=== PATIENT | male | born 1975 | race Caucasian/White ===

== ENCOUNTER 2016-04-11 00:47 | Emergency (ER) | payer OTHER ==
[~2016-04-11] VITALS: Ht 182.9 cm; Wt 95.3 kg
--- NOTE | 2016-04-11 03:53 | ED GI/GU/ABDOMINAL COMPLAINT ---
History of Present Illness General Chief Complaint: General Adult Stated Complaint: ?FB FOOD IN THROAT SINCE 1800 UNABLE TO SWALLOW Source: patient Exam Limitations: no limitations Vital Signs & Intake/Output Vital Signs & Intake/Output Vital Signs Date Time Temp Pulse Resp B/P Pulse O2 O2 Flow FiO2 Ox Delivery Rate 04/11 1400 97.2 67 22 114/70 98 Room Air 04/11 0835 97.2 70 22 127/59 98 Room Air 04/11 0616 97.5 78 20 118/55 99 Room Air 04/11 0337 98.0 88 18 127/88 98 Room Air 04/11 0214 97.0 84 18 113/79 98 Room Air Allergies Coded Allergies: No Known Allergies (04/11/16) Triage Note: PT TO ED C/O FOOD STUCK IN EPIGASTRIC AREA. PT REPORTS EATING AT 6 PM. PT REPORTS HAVING TROUBLE SWALLOWING AND DRINKING FLUIDS. PT DENIES PAIN, N/V. Triage Nurses Notes Reviewed? yes HPI: Patient presents for evaluation of food stuck in his throat. Patient states that he was eating meat at about 6:00 this evening when he felt something get stuck. Since then is been unable to tolerate fluids and states he keeps drooling. He denies shortness of breath. He states this is happened to him in the past. (STEPHANIE CROWELL,GERARDO Anderson) Reconcile Medications Pantoprazole Sodium (Protonix) 20 MG TABLET.DR 1 TAB PO DAILY esophageal food impaction (GÓMEZ RODRÍGUEZ MD) Past History Travel History Traveled to [place] past 21 day No Psychosocial History What is your primary language Hebrew Tobacco Use: Never used (STEPHANIE CROWELL,GERARDO Anderson) Medical History Any Pertinent Medical History? see below for history Surgical History Surgical History: EGD in past for food impaction Family History Hx Contributory? No (GÓMEZ RODRÍGUEZ MD) Review of Systems Review of Systems Constitutional: Reports: no symptoms. EENTM: Reports: no symptoms. Respiratory: Reports: no symptoms. Cardiovascular: Reports: no symptoms. GI: Reports: see HPI. Genitourinary: Reports: no symptoms. Musculoskeletal: Reports: no symptoms. Skin: Reports: no symptoms. Neurological/Psychological: Reports: no symptoms. Hematologic/Endocrine: Reports: no symptoms. Immunologic/Allergic: Reports: no symptoms. All Other Systems: Reviewed and Negative (GÓMEZ RODRÍGUEZ MD) Physical Exam Physical Exam Gastrointestinal: SEE BELOW Comments: Gen.: Well-nourished, well-developed, no acute respiratory distress. Head: Normocephalic, atraumatic. Eyes: Normal inspection bilaterally Ears: Normal inspection bilaterally Nose: Normal inspection Throat/mouth : Moist mucosa, no apparent foreign bodies Neck: Supple, full range of motion, no goiter Heart: Regular rate and rhythm, no murmurs rubs or gallops Lungs: Clear to auscultation bilaterally with normal air entry Chest: Nontender Back: Normal range of motion Abdomen: Soft, nontender, nondistended, normal bowel sounds Extremities: Normal range of motion grossly, equal radial pulses, no cyanosis clubbing or edema Neurologic: Cranial nerves grossly intact, speech is clear Skin: warm and dry Psychiatric: Calm, cooperative, no apparent delusions or hallucinations (STEPHANIE CROWELL,GERARDO Anderson) Physical Exam General Appearance: well developed/nourished, alert, awake, anxious, mild distress Head: atraumatic, normal appearance Eyes: Bilateral: normal appearance, PERRL, EOMI, normal inspection. Ears, Nose, Throat, Mouth: hearing grossly normal, moist mucous membrane Neck: normal inspection, supple, full range of motion, normal alignment Respiratory: normal breath sounds, chest non-tender, no respiratory distress, quiet respiration, lungs clear Cardiovascular: regular rate/rhythm, normal peripheral pulses, norml femoral pulses equa Peripheral Pulses: 4+ carotid (R), 4+ carotid (L) Male Genitals: normal genitalia Back: normal inspection, normal range of motion Extremities: normal range of motion, no ligament instability Neurologic/Psych: no motor/sensory deficits, awake, alert, oriented x 3, normal gait, normal mood/affect Skin: intact, normal color, warm/dry Core Measures ACS in differential dx? No Severe Sepsis Present: No Septic Shock Present: No (GÓMEZ RODRÍGUEZ MD) Progress Differential Diagnosis: esophageal food impaction Plan of Care: Current Medications Sig/Kyle Start time Last Medication Dose Stop Time Status Admin Ketorolac 30 MG ONCE ONE 04/11 1230 UNVr Tromethamine 04/11 1231 (Toradol) GI for EGD (GÓMEZ RODRÍGUEZ MD) Initial ED EKG: none Comments: 04/11/2016 5:06:19 AM patient has had no relief with the glucagon challenge. He is unable to tolerate fluids. 04/11/2016 5:50:35 AM patient's case discussed with Dr. Benton who will evaluate the patient shortly. (STEPHANIE CROWELL,GERARDO Anderson) Comments: Food bolus pushed into stomach (GÓMEZ RODRÍGUEZ MD) Departure Departure Condition: Stable Referrals: UNKNOWN (PCP/Family) Departure Forms: Customer Survey General Discharge Information (GERARDO BROWN MD) Departure Time of Disposition: 1219 Disposition: HOME OR SELF CARE Clinical Impression Primary Impression: Esophageal obstruction due to food impaction Additional Instructions: Soft diet for 2 weeks Prescriptions: Current Visit Scripts Pantoprazole Sodium (Protonix) 1 TAB PO DAILY #30 TAB (GÓMEZ RODRÍGUEZ MD)
--- NOTE | 2016-04-11 07:51 | Cons- Gastroenterology ---
General Information and HPI Consulting Request Date of Consult: 04/11/16 Requested By: GERARDO KOENIG MD Reason for Consult: Called 5:50 a.m. by the ER for 2 different patients with simultaneous food impactions. Source of Information: family Exam Limitations: no limitations History of Present Illness: 40-year-old male, non-hypertensive non-diabetic, non-smoker, non-EtOH, visiting [place] to see relatives. He is from [place], [place] & sees Dr. Peng Molina for primary care in [place], [place]. The patient has a history of intermittent dysphagia to dry solids, such as meat and bread, for a few years, occurring twice a year. Liquids usually help the food to pass. He swallows pills without difficulty. He has never had a food impaction to the point that it had to be endoscopically extracted. He had an EGD for this, as well as a simultaneous colonoscopy, at an outpatient surgi-center in [place], [place] in 2013, although he is unsure as to the name of the hr shared services consultant who performed this. He is not certain of the results of the EGD, but thinks they told him there was a "narrowing" in the esophagus. He is not certain if the esophagus was biopsied or dilated then. The colonoscopy, which was done then for scant rectal bleeding, was "normal except for hemorrhoids". At approximately 6 PM 0n 04/10/2016, the patient was eating dinner at a [employer] restaurant. After eating some grilled meat, the patient noted recurrent dysphagia. He tried to drink liquids to make this pass, but this was unsuccessful. He then tried to induce vomiting, and threw up a portion of the food, although there was still a sticking sensation. He pointed to the xiphoid process, as to the region of sticking. Initially, he could not swallow his saliva. He arrived to the [facility], 04/11/2016 at 12:47 AM, VSS, afebrile, with O2 sat RA 98%. He was given 1 amp of glucagon IV by the ER, without relief, prior to me being contacted at 5:50 AM. I advised giving SL NTG at that point, which was ultimately given a couple of hours later, along with an additional dose of glucagon, which seemed help, although incompletely. The patient is able to control his secretions. I had him take a few sips of water, which partially went down, but he still feels a sticking sensation in the mid-chest. The patient does have a history of GERD, for which he takes Tums as needed. He is not on H2 blockers or PPI. There is no transfer dysphagia by history. The patient denies any odynophagia, abdominal pain, hematemesis, melena, nausea, chest pain, shortness of breath, pleuritic pain, hemoptysis, early satiety, fevers, chills, jaundice, weight loss , rashes, or change in appetite. There is no diarrhea, constipation, obstipation, tenesmus, or rectal bleeding, aside from an occasional scant hemorrhoid. The patient is right-handed. He denies any head and neck malignancy or head and neck radiation. There is no history of any neurologic disease or CVA. He denies any thyroid disease, nasal regurgitation of food or liquids, or change in his voice. He is on no outpatient medications, except for Tums, as needed. He recently finished some type of antibiotic after having had a tooth pulled, within the past couple of weeks. Otherwise, he has had no surgery or hospitalizations. There is no family history of any GI malignancy, GI disease, or inherited liver disease. Allergies/Medications Allergies: Coded Allergies: No Known Allergies (04/11/16) Home Med List: No Known Home Medications Current Medications: Current Medications Sig/Kyle Start time Last Medication Dose Route Stop Time Status Admin Glucagon 1 MG ONCE ONE 04/11 814 AZ 04/11 N/A 1 UNIT IV 04/11 0814 0836 Glucagon 0 .STK-MED ONE 04/11 401 DC .ROUTE Glucagon 1 MG ONCE ONE 04/110 [place] 04/11 IV PUSH 04/111 0411 Nitroglycerin 0.4 MG ONCE ONE 04/11 0715 DC 04/11 SL 04/11 0816 0826 Past History Travel History Traveled to [place] past 21 day No Medical History Blood Transfusion Hx: No Neurological: NONE EENT: NONE Cardiovascular: NONE Respiratory: NONE Gastrointestinal: intermittent dysphagia to solids & GERD Hepatic: NONE Renal: NONE Musculoskeletal: NONE Psychiatric: NONE Endocrine: NONE Blood Disorders: NONE Cancer(s): NONE DIRECTOR OF EDUCATION/Reproductive: NONE Surgical History Surgical History: tooth pulled Family History Relations & Conditions If Any: FATHER ([employer]). Age 74. MOTHER ([employer]; [employer] Pt has no siblings). Age 75. Psychosocial History Where Do You Live? Home Who Do You Live With? spouse, child Services at Home: None Primary Language: Malian Smoking Status: Never Smoked ETOH Use: mimimal Illicit Drug Use: denies illicit drug use Living Will? no Power of Aquatic Director/HCP? no Other Social History: . 2 sons & 1 dtr- [employer]. [employer] ([employer] in [place]. No cigarettes. Rare EtOH. No drugs. Functional Ability ADLs Independent: dressing, eating, toileting, bathing. Ambulation: independent IADLs Independent: shopping, housework, finances, food prep, telephone, transportation , medication admin. 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 Review of Systems Constitutional: Denies: chills, diaphoresis, fever, malaise, weakness, unexplained weight loss. EENTM: Denies: blurred vision, double vision, visual changes, eye pain, eye drainage, eye tearing, icterus, ear discharge, ear pain, ear redness, hearing changes, nasal congestion, epistaxis, nasal pain, throat pain, throat swelling, mouth pain, tooth pain. Cardiovascular: Denies: chest pain, edema, orthopena, palpitations, peripheral edema, syncope. Respiratory: Denies: cough, hemoptysis, orthopnea, short of breath, sputum production, stridor, wheezing. GI: Denies: no symptoms (dysphagia; GERD), abdominal pain, bloating, constipation, diarrhea, distention, bowel incontinence, melena, nausea, bloody stool, changes in stool, vomiting, steatorrhea. Genitourinary: Denies: discharge, dysuria, frequency, hematuria, hesitation, nocturia, pain, urgency. Musculoskeletal: Denies: back pain, gout, joint pain, joint swelling, muscle pain, muscle stiffness, neck pain. Skin: Denies: cysts, change in skin color, change in hair/nails, dryness, erythema, jaundice, lesions, lymphangitis, lumps, moles, rash. Neurological/Psychological: Denies: anxiety, ataxia, cognitive dysfunction, confusion, depressed, dementia, emotional problems, headache, numbness, paresthesia, pre-existing deficit, petit mal seizures, tingling, tremors, tonic-clonic seizures, unable to move lower ext , unable to move upper ext, weakness. Hematologic/Endocrine: Denies: bruising, bleeding, polyuria, polydipsia. Immunologic/Allergic: Denies: splenectomy, HIV/AIDS, lymphadenopathy. All Other Systems: Reviewed and Negative Exam & Diagnostic Data Vital Signs and I&O Vital Signs Date Time Temp Pulse Resp B/P Pulse O2 O2 Flow FiO2 Ox Delivery Rate 04/11 0835 97.2 70 22 127/59 98 Room Air 04/11 0616 97.5 78 20 118/55 99 Room Air 04/11 0337 98.0 88 18 127/88 98 Room Air 04/11 0214 97.0 84 18 113/79 98 Room Air Intake & Output 04/11 1600 04/11 0400 04/10 1600 04/10 0400 04/09 1600 04/09 0400 Intake Total 0 Output Total Balance 0 Intake, Oral 0 Patient 210 lb Weight Physical Exam: Well-developed, well-nourished, right-handed male, in no apparent distress, nontoxic appearing. Not drooling. Sclera anicteric. Conjunctiva pink. Oropharynx clear. No oral thrush. No aphthous ulcers. No stridor. There is no adenopathy, thyromegaly, or JVD. No peripheral stigmata of inflammatory bowel disease or chronic liver disease on exam. No CVA tenderness. Lungs: clear to A&P. No wheezing, rales, or rhonchi. No headache and neck or chest wall crepitus. No CWT. Heart exam: regular rate rhythm, S1 S2, without any murmur. Abdominal exam: normal bowel sounds, soft belly, nontender, without guarding or rebound. No mass. No organomegaly. No fluid shift. No pulsatile mass. Digital rectal exam: deferred. Extremities: without C, C, or E. No palpable cords. No rash. No acute arthropathy. Distal pulses 2+ bilaterally. DTRs 2+ bilaterally. CN II-XII intact. Motor 5/5 B/L. Alert and oriented x 3. Results Pertinent Lab Results: None Imaging/Other Studies: None Assessment/Plan Assessment/Recommendations: 40-year-old male, non-hypertensive non-diabetic, non-smoker, non-EtOH, visiting [place] to see relatives. He is from [place], [place] & sees Dr. Peng Molina for primary care in [place], [place]. The patient has a history of intermittent dysphagia to dry solids, such as meat and bread, for a few years, occurring twice a year. Liquids usually help the food to pass. He swallows pills without difficulty. He has never had a food impaction to the point that it had to be endoscopically extracted. He had an EGD for this, as well as a simultaneous colonoscopy, at an outpatient [facility] in [place], [place] in 2013, although he is unsure as to the name of the hr shared services consultant who performed this. He is not certain of the results of the EGD, but thinks they told him there was a "narrowing" in the esophagus. He is not certain if the esophagus was biopsied or dilated then. The colonoscopy, which was done then for scant rectal bleeding, was "normal except for hemorrhoids". At approximately 6 PM 0n 04/10/2016, the patient was eating dinner at a [employer] restaurant. After eating some grilled meat, the patient noted recurrent dysphagia. He tried to drink liquids to make this pass, but this was unsuccessful. He then tried to induce vomiting, and threw up a portion of the food, although there was still a sticking sensation. He pointed to the xiphoid process, as to the region of sticking. Initially, he could not swallow his saliva. He arrived to the [facility], 04/11/2016 at 12:47 AM, VSS, afebrile, with O2 sat RA 98%. He was given 1 amp of glucagon IV by the ER, without relief, prior to me being contacted at 5:50 AM. I advised giving SL NTG at that point, which was ultimately given a couple of hours later, along with an additional dose of glucagon, which seemed help, although incompletely. The patient is able to control his secretions. I had him take a few sips of water, which partially went down, but he still feels a sticking sensation in the mid-chest. The patient does have a history of GERD, for which he takes Tums as needed. He is not on H2 blockers or PPI. There is no transfer dysphagia by history. The patient denies any odynophagia, abdominal pain, hematemesis, melena, nausea, chest pain, shortness of breath, pleuritic pain, hemoptysis, early satiety, fevers, chills, jaundice, weight loss , rashes, or change in appetite. There is no diarrhea, constipation, obstipation, tenesmus, or rectal bleeding, aside from an occasional scant hemorrhoid. The patient is right-handed. He denies any head and neck malignancy or head and neck radiation. There is no history of any neurologic disease or CVA. He denies any thyroid disease, nasal regurgitation of food or liquids, or change in his voice. He is on no outpatient medications, except for Tums, as needed. He recently finished some type of antibiotic after having had a tooth pulled, within the past couple of weeks. Otherwise, he has had no surgery or hospitalizations. There is no family history of any GI malignancy, GI disease, or inherited liver disease. Although the patient looks relatively comfortable & is able to clear his secretions, he is still symptomatic with dyspahgia, despite 2 amps of IV glucagon & SL NTG x 1. Water did not seem to pass completely. I currently do not have access to his previous [place] EGD of 2013, nor does the patient know the name of the performing physician. Statistically, most likely, the patient has an underlying lower esophageal (Schatzki) ring, with an intermittent "trap-door" effect, accounting for the intermittent dysphagia to dry solids. Other possibilities could include eosinophilic esophagitis, rule out web. An underlying esophageal dysmotility is possible, but usually this gives more difficulty with liquids than solids. An esophageal stricture is possible, although the patient's symptoms are very infrequent and not constant. Doubt neoplasm, especially with relatively recent EGD and lack of constitutional symptoms. The above diagnostic possibilities were discussed with the patient in great detail. The risks & benefits of EGD with attempt at foreign body removal were discussed with the patient in great detail, and informed consent was obtained from him. He was made aware that he is at slightly higher than average risk for perforation and/or aspiration, etc., based on the fact that there is a food impaction. He was also told that he may need prophylactic intubation to protect his airway, and that this would be at the discretion of anesthesia. The patient was told that the purpose of this procedure is to remove the food impaction, but that he will need a repeat EGD under elective conditions when he returns to [place]. He was informed that normally we do not perform biopsies or dilatation in the setting of an acute food impaction, and that it should be done in a later setting, after the obstruction is removed. I will defer to his physicians in [place] for consideration of possible esophageal manometry, depending on the EGD results. He will probably have to be on outpatient PPI. The patient was given my office number for future reference, should his [place] physicians need to contact me. The above findings and recommendations were discussed with Dr. Koenig & later with Dr. Coello, of the [facility], who assumed the patient's care. Further recommendations will follow, depending on clinical course and EGD results. Problem List: 1. Dysphagia 2. Food impaction of esophagus 3. GERD (gastroesophageal reflux disease) Copies To: STEPHANIE CROWELL,GERARDO Anderson; ANNE CROWELL,GÓMEZ; RALPH CROWELL,PENG Consult Acknowledgment - Thank you for your consult request.
--- NOTE | 2016-04-11 10:41 | Proc Note Endoscopy ---
Endoscopy Procedure Medical History: unchanged Mental Status: alert/oriented Heart/Lung Eval Prior to Sedation: within normal limits Candidate for Sedation? Yes Procedure Date: 04/11/16 Procedure Type: EGD with foreign body removal Jack Setter: CLAIRE DE LA PAZ MD ASA Classification: II (II-E) Indications: INDX: (*Please refer to GI consult from earlier today) 40-year-old male with food impaction (meat by history) 6 p.m. yesterday, dysphagia, history of GERD. Instrument: diagnostic gastroscope Meds Received: MAC Patient's Tolerance: good Complications: none Extent Reached: second part of duodenum Procedure: Upper endoscopy with esophageal foreign body removal (meat by history), to the second portion of the duodenum, was performed with the Olympus high definition videoendoscope, after obtaining informed consent from the patient, with the groundwater monitoring technician and pulse oximeter, in the [facility], room #12, with the assistance of Dr. Jimenez, of [facility], and the juvenile probation officer GI RNs, Mary. A mouthpiece was placed in the usual fashion to protect the patient's teeth. The patient was placed in the left lateral decubitus position and sedated by [facility]. The patient was aggressively suctioned intraoperatively, to prevent aspiration. At this point, the endoscope was advanced from the mouth into the esophagus, using direct visualization technique. I did not get a good look at the vocal cords. The proximal esophageal mucosa appeared normal. A column of water was suctioned clear from the upper esophagus, as it previously did not drain, due to a lower esophageal food impaction. There were no definite esophageal rings, webs, lesions, or ulcers. There was no definite esophageal stricture, although the lower esophageal lumen at 40 cm (below the level of the food impaction), was suggestive of slight focal narrowing. There was no monilia or vesicles. There was no definite esophageal ribbing to suggest EOE. A food bolus was stuck in the lower esophagus, from 39-40 cm. This was tediously broken up, peripherally, then centrally, using a combination of Estrada Net x 2, alligator forceps, basket, and 3-pronged grabber. A portion of the food was removed orally, requiring numerous endoscopies. The residual food then fell into the proximal stomach. The Z line was seen at 40 cm. The distal esophageal mucosa was inflamed as expected after the food impaction, with some scant heme. Esophageal biopsies were obviously deferred. No definite ectopic islands were seen to suggest Alcala's esophagus, within the limits of the exam, post-food impaction. There was no hiatal hernia pouch. There were no esophageal or gastric varices, nor any Apple Waggoner tear. The louis of the stomach distended normally with air insufflation. Direct and retroflexed views of the stomach were performed. There was nothing endoscopically to suggest gastroparesis or portal gastropathy. The mucosa of the gastric cardia was normal, except for some scant heme noted on retroflexion, post-foreign body removal from the distal esophagus. The gastric fundus was normal, except for a small amount which was obscured by food that had been removed from the lower esophagus. The lesser curvature, incisura, body, and antrum appeared normal, without any gastric ulcers or gastric lesions. The pylorus was patent, without any gastric outlet obstruction or channel ulcer. The duodenal bulb was normal, except for some mild superficial erythema and nodularity, most consistent with probable Agapito gland hypertrophy vs. gastric metaplasia. Biopsies were deferred. No duodenal ulcers were seen in the duodenal bulb. The duodenal sweep appeared normal, including the ampulla, without any duodenal ulcers, distal ulcerations, or angiodysplasias. The folds of the second portion of the duodenum were normal in caliber, without any flattening, nodularity, scalloping, or mosaic pattern. No active upper GI bleeding was seen, aside from some scant heme in the lower esophagus and upper gastric cardia, as expected, post-foreign body removal. The patient tolerated the procedure well. There is no head and neck or chest wall crepitus postoperatively. Documenting photographs were obtained, with one copy left with the BATT PACKER and another copy taken by the GI nurses to the GI suite. I spoke with the patient and his , Lia, postoperatively in the ER. Impression: 1. Food bolus (meat by history), from 39-40 cm, removed from the distal esophagus. 2. No esophageal ribbing, web, ring, or lesions seen, within the limits of a post food bolus exam. Suggestion of mild focal esophageal narrowing at 40 cm, without any definite stricture. 3. Slightly inflamed distal esophagus at 40 cm, as expected, post-food bolus. 4. 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 5. Small portion of gastric fundus obscured by food, which was cleared from the esophagus. Recommendations: The patient may start clears po later today, and advance his diet tomorrow, cutting food into small pieces. He should follow aspiration precautions, and eat and drink in the upright position. He will be going back to [place] today. I advised starting Protonix 40 mg each a.m. 1/2 hour before breakfast, plus antireflux measures (Dr. Rodríguez, of the [facility], will give the patient a prescription). The patient was advised that if he develops any chest pain, shortness breath, fevers, hematemesis, abdominal pain, etc., to call me or his [place] doctors. He was given my office number for future reference. The patient was advised to follow up with his [place] physicians for a repeat EGD under elective conditions, at which point, biopsies can be performed and/or esophageal dilatation, if deemed clinically appropriate (differential diagnoses are as per this mornn's GI consult). I will defer to his physicians in [place] for consideration of possible esophageal manometry. A printout of today's GI consultation and EGD, with postop instructions, were given to the patient, to bring back to [place]. The above findings and recommendations were discussed with Dr. Rodríguez, the patient, and the patient's , Lia, in the [facility] , postoperatively. CC: STEPHANIE CROWELL,GERARDO Andreson; GÓMEZ RODRÍGUEZ MD; RALPH CROWELL,AILEEN
[2016-04-11] MEDS ORDERED: PROTONIX20 M1 PO (12:20)
[2016-04-11 14:00] VITALS: BP 114/70
== END 2016-04-11 14:00 ==
LOC: ERH 00:47
DX: T18.128A Food in esophagus causing other injury, initial encounter (principal); R13.14 Dysphagia, pharyngoesophageal phase; X58.XXXA Exposure to other specified factors, initial encounter
CPT/HCPCS: 96374; 96375; 96376; J1610; J1885